=== PATIENT | female | born 1955 | race Caucasian/White ===

== ENCOUNTER → 2021-02-26 | Outpatient (CLI) | payer MEDICARE ==
[2021-02-26 22:56] LABS: Chol/HDL Ratio 3.44; LDL Cholesterol,Calculated 70.4 mg/dL (0.0-131.0); VLDL Calculation 29.6 mg/dL (5.00-40.00)
[2021-02-26 23:03] LABS: T4, Free (Free Thyroxine) 1.1 ng/dL (0.80-1.80)
== END | disposition home or self-care (01) ==
LOC: LABWHC1 10:21
PROVIDERS: ATTEND Family Medicine
DX: Z01.812 Encounter for preprocedural laboratory examination (principal); E03.9 Hypothyroidism, unspecified; E78.00 Pure hypercholesterolemia, unspecified; R73.03 Prediabetes
CPT/HCPCS: 36415; 80061; 83036; 84439; 84443; 84450; 84460

== ENCOUNTER → 2021-02-26 | Outpatient (CLI) | payer MEDICARE ==
--- NOTE | 2021-02-26 11:08 | XR ---
EXAMINATION TYPE: XR chest 2V DATE OF EXAM: 02/26/2021 COMPARISON: NONE TECHNIQUE: PA and lateral views submitted. HISTORY: Postop FINDINGS: The lungs are clear and there is no pneumothorax, pleural effusion, or focal pneumonia. Heart size normal. Atherosclerotic change aorta. No overt failure. Biapical pleural thickening. IMPRESSION: 1. No acute process.
[2021-02-26 11:45] LABS: Basophils % (A) 1 %; Eosinophils # (A) 0.2 k/uL (0-0.7); Eosinophils % (A) 6 %; HCT 43.5 % (34.0-46.0); HGB 14.8 gm/dL (11.4-16.0); Lymphocytes % (A) 25 %; MCH 33.2 pg (25.0-35.0); MCV 97.6 fL (80.0-100.0); Mean Platelet Volume 7.1; Monocytes # (A) 0.3 k/uL (0-1.0); Monocytes % (A) 8 %; Neutrophils # (A) 2.2 k/uL (1.3-7.7); Neutrophils % (A) 57 %; Platelet Count 200 k/uL (150-450); RBC 4.46 m/uL (3.80-5.40); RDW 13.6 % (11.5-15.5); WBC 3.8 k/uL (3.8-10.6)
[2021-02-26 11:47] LABS: Appearance,Urine Clear (Clear); Bacteria,Urine Occasional /hpf; Bilirubin,Urine Negative (Negative); Blood,Urine Negative (Negative); Color,Urine Yellow; Glucose,Urine (UA) Negative (Negative); Ketones,Urine Negative (Negative); Leukocyte Esterase,Urine Small (Negative); Mucus,Urine Rare /hpf; Nitrite,Urine Negative (Negative); PH, Urine 5.5 (5.0-8.0); Protein,Urine Negative (Negative); Specific Gravity,Urine 1.021 (1.001-1.035); Squamous Epithelial Cell,Urine 2 /hpf (0-4); Urobilinogen,Urine <2.0 mg/dL (<2.0); WBC,Urine 1 /hpf (0-5)
[2021-02-26 11:53] LABS: INR 0.9 (<1.2); Partial Thromboplastin Time 22.9 sec (22.0-30.0); Prothrombin Time 10.1 sec (9.0-12.0)
[2021-02-26 11:54] LABS: African American GFR (CKD) >90 (>60 ml/min/1.73 sqM); Anion Gap 8 mmol/L; Blood Urea Nitrogen 18 mg/dL (7-17); Calcium 9.9 mg/dL (8.4-10.2); Carbon Dioxide 29 mmol/L (22-30); Chloride 105 mmol/L (98-107); Glucose 128 mg/dL (74-99); Non-African American GFR(CKD) >90 (>60 ml/min/1.73 sqM); Sodium 142 mmol/L (137-145)
== END | disposition home or self-care (01) ==
LOC: LABPAT 10:16
PROVIDERS: ATTEND Orthopaedic Surgery Orthopaedic Surgery of the Spine
DX: Z01.812 Encounter for preprocedural laboratory examination (principal); M48.00 Spinal stenosis, site unspecified
CPT/HCPCS: 36415; 71046; 80048; 81001; 85025; 85610; 85730; 87070

== ENCOUNTER 2021-03-06 07:17 | Inpatient (IN) | payer MEDICARE ==
[2021-03-04 10:25] VITALS: BMI 36.8
[~2021-03-06 07:17] MED LIST: DEXAMETHASONE SOD PHOSPHATE 4 MG/ML 1 ML VIAL IV ONE; FAMOTIDINE 20 MG/2 ML VIAL IV PRN; ONDANSETRON 4 MG/2 ML VIAL IVP ONE; ceFAZolin 1,000 MG in SODIUM CHLORIDE 0.9% IRRIGATIO 1,000 ML IRRIGATION PRN
[2021-03-06] MEDS ORDERED: LIDOCAINE 1% (10MG/ML) FOR IV START INTRADERMA ONE (08:07)
[2021-03-06] MEDS: LACTATED RINGERS 1,000 ML IV SCH ×2 (08:09→16:11)
[2021-03-06 08:23] LABS: Glucose,Whole Blood 111 mg/dL (75-99)
[2021-03-06] MEDS ORDERED: ROCURONIUM 10 MG/ML (5 ML VIAL) IV ONE (08:25)
[2021-03-06] MEDS ORDERED: SUCCINYLCHOLINE CHLORIDE 100 MG/5 ML SYR IV ONE (08:25)
[2021-03-06] MEDS ORDERED: LIDOCAINE 1% INJ 10MG/ML (20 ML MDV) ONE (08:25)
[2021-03-06] MEDS ORDERED: fentaNYL (PF) 50 MCG/ML 2 ML AMP ONE (08:25)
[2021-03-06] MEDS ORDERED: MIDAZOLAM 2 MG/2 ML VIAL ONE (08:25)
[2021-03-06] MEDS ORDERED: PROPOFOL 10 MG/ML 20 ML VIAL IV ONE (08:25)
[2021-03-06] MEDS ORDERED: LIDOCAINE 1%-EPI 1:100,000 20 ML VIAL SQ ONE (09:14)
[2021-03-06] MEDS ORDERED: GELATIN SPONGE,ABSORB (LARGE) 1 EACH SPONGE MISCELLANE ONE (09:14)
[2021-03-06] MEDS ORDERED: THROMBIN (BOVINE) 5,000 UNIT VIAL TOPICAL ONE (09:14)
[2021-03-06] MEDS ORDERED: LACTATED RINGERS 1,000 ML IV ONE ×3 (09:58→12:25)
[2021-03-06] MEDS ORDERED: CYCLOBENZAPRINE 10 MG TAB PO PRN (11:34)
[2021-03-06] MEDS ORDERED: BENZOCAINE/MENTHOL LOZENG 1 EACH LOZENGE MUCOUS MEM PRN (11:34)
[2021-03-06] MEDS ORDERED: ALBUTEROL NEBULIZED 2.5 MG/3 ML INHALATION PRN (11:36)
--- NOTE | 2021-03-06 11:50 | P.OP ---
Date of Procedure: 03/06/21 Preoperative Diagnosis: Recurrent stenosis L4 5, degenerative scoliosis lumbar spine, degenerative disc disease, low back pain, lower extremity radiculopathy, lower extremity weakness, history of prior L4 5 Postoperative Diagnosis: Same Plus incidental durotomy which was a unexpected but known, patient of the surgical procedure Anesthesia: GETA Pathology: none sent Condition: stable Disposition: PACU Description of Procedure: DESCRIPTION OF PROCEDURE(S): BRIEF OPERATIVE NOTE Preoperative Diagnosis: Recurrent stenosis L4 5, degenerative scoliosis lumbar spine, degenerative disc disease, low back pain, lower extremity radiculopathy, lower extremity weakness, history of prior L4 5 Postoperative Diagnosis:Recurrent stenosis L4 5, degenerative scoliosis lumbar spine, degenerative disc disease, low back pain, lower extremity radiculopathy, lower extremity weakness, history of prior L4 5, plus incidental durotomy which wasn't known but unexpected competition of surgery and was repaired Procedure: Revision Laminectomy and decompression L4 5 Minimally invasive Posterior lateral decompression with discectomy and facet fusion L4 5 Minimally invasive Transforaminal lumbar interbody fusion for a 360 fusion L4 5 Discectomy for decompression L4 5 Placement of interbody graft L4 5 Local autogenous bone grafting Use of Cell Saver Use of bone graft extenders Closure incidental less than 1 mm durotomy with Tisseel Surgeon: Dr. Moncada Relocation Manager: Gurinder Collins is present throughout the entire the case persistence during positioning, dissection, exposure, visualization, and all crucial elements of the case as well as closure. Anesthesia: General anesthesia per Dr. Stroud Estimated blood loss: Approximately 250 mL Complications: Small less than 1 mm incidental durotomy at the right of L4 5 which was a unexpected but known convocation of surgery. This was able to be sealed well with Tisseel without any suture Components implanted: K2M minimally invasive [facility] pedicle screw system with 4 screws measuring 6.5 x 45 mm with 2 rods and 1 interbody [place] cage and Bio4 and DBX bone fibers to supplemental local autogenous bone graft Disposition: To recovery room in good stable condition. OPERATIVE INDICATIONS The patient has had long-standing issues in their lower back and lower extremities. One 20 years ago she had a laminectomy discectomy for a herniated disc at L4 5 which is giving her significant problems. She had done well with this however over the past couple of years she has been having worsening pain at her back and lower extremities. She's been having significant worsening right lower extremity radiculopathy over an L5 distribution and was found have degenerative disc disease with degenerative scoliosis and recurrent stenosis L4 5 and severe right foraminal stenosis which really well with her low back and lower extremity symptoms. The patient has been through conservative treatment. She is no longer have any lasting effect with interventional pain management . We discussed various treatment options including surgery, and the patient wishes to proceed with surgery We discussed the risk, patient's alternatives and benefits of surgery including but not limited to, risk of bleeding risk of infection, risk of need for further surgery, risk of decreased, loss of motion, muscle function, malunion nonunion, hardware failure, nerve damage, paralysis, heart attack, blindness and . OPERATIVE SUMMARY After discussing all the risks, patient alternatives and benefits at length, the patient elected to proceed with surgical intervention, signed informed consent, and presented for their procedure. The patient was seen and examined in the preoperative holding area and the surgical site was marked. The patient was given antibiotics and brought to the operating room. The patient was sedated and intubated by anesthesia in standard fashion. The patient was positioned on to the operating room table in a prone position on the appropriate frame which was well-padded and well molded. We were careful to pad any bony prominences and pressure points. We were careful to maintain the patient's cervical spine and good neutral alignment and position throughout. The patient was prepped and draped in a normal standard fashion. An appropriate timeout and keystone protocol performed. We were able to proceed with the surgery. The local wound area was infiltrated with local anesthetic. I was able utilize C-arm guidance to establish appropriate position over the pedicles bilaterally at the appropriate levels of L4 5. With the appropriate levels confirmed was able to make small stab incisions over the appropriate pedicle sites bilaterally. Utilizing C-arm in his house able to establish a Jamshidi needle over the lateral aspect of the pedicle and advanced the trocar into the pedicle being careful not to breech superiorly inferiorly medially or laterally. Position was confirmed regularly with AP and lateral images on C- arm. I was able to establish the trocar into the pedicle appropriately into the posterior aspect of the vertebral body bilaterally at the appropriate levels at L4 5 bilaterally. This was done at each of the pedicle positions and each of the vertebrae. I was able place the guidewire into the trocar and into the vertebral body appropriately under C-arm guidance. Dissection was taken down over the wire to the appropriate starting position for the screw placed. The appropriate length screw was chosen, threaded over the guidewire and screwed appropriately into the pedicle and vertebral body under C-arm guidance in excellent alignment and position with good bony purchase. This is done at each of the screw sites at the appropriate levels at L4 and 5 bilaterally. With the screws intact I extended the incision to connect the screw hole sites on the most symptomatic side on the right. I dissected down to establish access over the pars and lamina to the base of the spinous process. I was able to expose the facet joint. The capsule the facet was taken down and showed some facet arthrosis at the joint. I was able to use a combination of curettes and Kerrison rongeurs and a high-speed drill to take down the facet joint and do a facetectomy. Partial laminectomy was also performed. I was able get excellent foraminal decompression and central decompression with undermining across midline to perform a laminectomy centrally and contralaterally. I was able get good central decompression. The ligamentum flavum was taken down to further decompress centrally and at bilateral neural foramen. I was able to expose the disc space and visualize the traversing nerve root. At this point I noted some small CSF leakage. I explored the area but only saw a small pinhole size area where the leak was stemming at the posterior lateral aspect of the dura underneath the facet. There was some scar tissue around the area which had been taken down. I was able to pack the area with Gelfoam and control the leak and proceeded with the rest of the procedure well holding control over the leak. I was able to explore down over the disc space. Note was made of some disc protrusion at the level causing further compression of the nerve root. I was able to establish a annulotomy at the appropriate level protecting soft tissue and neural structures. Note was made of some disc desiccation at the disc. I performed a complete discectomy with accommodation of curettes and rasps and scrapers. I was able get good endplate preparation at the disc space. I sized for the appropriate size interbody spacer protecting the soft tissue and neural structures. The wound was copiously irrigated and suctioned dry. I was able to pack the disc space with local autogenous bone graft as well as a small amount of bone graft which was also placed into the interbody cage itself. Protecting the soft tissue structures and neural structures I was able place the interbody cage in good alignment and good position with good fit and fill at the interbody space. Position was confirmed with C-arm guidance. Good hemostasis maintained. I was able to remove the Gelfoam and there is no evidence of further leaking. We performed a Valsalva maneuver intraoperatively to explore if there was further leaking but was not any evidence of further CSF leak. I explored the area and did not see any obvious tear. There is no further collection of CSF fluid. I do not feel that we had to place any stitches in the area. I decided to place Tisseel over the space with a leak had occurred. Further Valsalva maneuver was performed and there is no evidence of any CSF collection or further leak. The wound was irrigated and suctioned dry. With the hardware intact, intraoperative C-arm imaging was again taken which showed good alignment and position of the hardware at the appropriate levels At L4 5. We were then able to measure, contour and place the rods and appropriate hardware bilaterally. I was able to place capcrews, tighten them down, and torque them with the torque screwdriver appropriately. With this intact I was able to place the local autogenous bone graft with additional bone graft enh ancer as necessary into the posterior lateral gutters over the decorticated transverse processes. The remainder of the bone graft was placed over the facet joint on the contralateral side after taking down the facet joint capsule. With the bone graft intact, a stable construct, and good decompression at the appropriate levels, we were able to proceed with closure. Good hemostasis was maintained. There is no evidence of dural tear or leak. The fascia was closed for a watertight closure. he subcuticular tissue was closed with absorbable suture. The wound was cleaned and dried and dressed with the appropriate dressing. The drapes were broken down. The patient was gently rolled back onto their hospital bed being careful to maintain their cervical spine and good neutral alignment and position. They were woken up by anesthesia, extubated, and brought to the recovery room in good stable condition. The patient will be admitted to the hospital for appropriate postoperative care, medical management and monitoring. We will continue to follow them closely about the postoperative course.
[2021-03-06] MEDS: HYDROmorphone 0.5 MG/0.5 ML SYRINGE IVP PRN ×3 (12:18→19:52)
[2021-03-06 12:39] LABS: Glucose,Whole Blood 121 mg/dL (75-99)
--- NOTE | 2021-03-06 12:50 | FL ---
Fluoroscopy and limited lumbar spine HISTORY: Pain 18 seconds fluoroscopy time supplied to the referring clinician. 2 intraoperative C-arm images docum ent the procedure. See dictated report from anesthesia.
[2021-03-06] MEDS: HYDROmorphone 1 MG/ML 1 ML SYRINGE IVP PRN (14:21)
[2021-03-06] MEDS: ATORVASTATIN 10 MG TAB PO SCH (14:22)
[2021-03-06] MEDS: SODIUM CHLORIDE 0.9% 1,000 ML IV SCH (14:23)
[2021-03-06] MEDS: HYDROcodone/APAP 10-325MG 1 EACH TAB PO PRN ×2 (16:09→23:55)
[2021-03-06] MEDS: CYCLOBENZAPRINE 10 MG TAB PO SCH ×2 (16:09→21:03)
[2021-03-06] MEDS: PRAMIPEXOLE 0.5 MG TAB PO SCH (21:02)
[2021-03-07] MEDS: SODIUM CHLORIDE 0.9% 1,000 ML IV SCH ×2 (01:00→13:39)
[2021-03-07] MEDS: SUMAtriptan succinate 50 MG TAB PO PRN ×2 (01:03→15:08)
[2021-03-07] MEDS: HYDROmorphone 1 MG/ML 1 ML SYRINGE IVP PRN ×4 (02:58→19:44)
[2021-03-07] MEDS: LEVOTHYROXINE 137 MCG TAB PO SCH (05:49)
[2021-03-07] MEDS: HYDROcodone/APAP 10-325MG 1 EACH TAB PO PRN ×4 (05:49→23:12)
[2021-03-07 06:58] LABS: Basophils % (A) 1 %; Eosinophils # (A) 0.2 k/uL (0-0.7); Eosinophils % (A) 4 %; HCT 42.2 % (34.0-46.0); HGB 14.5 gm/dL (11.4-16.0); Lymphocytes # (A) 0.8 k/uL (1.0-4.8); Lymphocytes % (A) 16 %; MCH 33.7 pg (25.0-35.0); MCHC 34.4 g/dL (31.0-37.0); MCV 97.9 fL (80.0-100.0); Mean Platelet Volume 7.2; Monocytes # (A) 0.4 k/uL (0-1.0); Monocytes % (A) 7 %; Neutrophils # (A) 3.7 k/uL (1.3-7.7); Neutrophils % (A) 71 %; Platelet Count 221 k/uL (150-450); RBC 4.31 m/uL (3.80-5.40); RDW 13.4 % (11.5-15.5); WBC 5.2 k/uL (3.8-10.6)
[2021-03-07] MEDS ORDERED: PANTOPRAZOLE 40 MG TABLET PO SCH (07:30)
[2021-03-07] MEDS: CYCLOBENZAPRINE 10 MG TAB PO SCH ×3 (08:00→21:03)
[2021-03-07] MEDS: LORATADINE 10 MG TAB PO SCH (08:00)
[2021-03-07] MEDS: metFORMIN 500 MG TAB PO SCH (08:00)
[2021-03-07] MEDS: METOPROLOL SUCCINATE (ER) 25 MG TAB.ER.24H PO SCH (08:00)
[2021-03-07] MEDS: TRIAMTERENE-HCTZ 37.5-25MG 1 EACH CAP PO SCH (08:00)
[2021-03-07] MEDS: SENNOSIDES-DOCUSATE SODIUM 1 EACH TAB PO SCH (08:00)
[2021-03-07] MEDS: MULTIVITAMINS, THERA 1 EACH TAB PO SCH (08:00)
[2021-03-07] MEDS: CHOLECALCIFEROL 25 MCG (1000 IU) TABLET PO SCH (08:00)
--- NOTE | 2021-03-07 08:54 | P.PN ---
Progress Note - Text Progress Note Date: 03/07/21 Postoperative day #1 Patient is seen and examined today at bedside. The patient has some pain around the surgical site as expected. Pain is being controlled with medication. She remains on the bed rest flat in bed. She said she had a very slight migraine which is not uncommon for her but this resolved well with medication. She feels her legs are doing well but has pain with moving of her right leg but is able to do so with adequate strength. She denies any nausea or vomiting. Physical Exam Afebrile with stable vital signs Abdomen is soft nontender. Chest has good excursion deep and space expiration She remains flat in bed. Her Mayen is intact. Extremities have not had neurologic change from prior to surgery. Calves and thighs were soft nontender without evidence of DVT. Assessment/Plan Postoperative day #1 status post minimally invasive revision decompression and fusion L4 5 for her degenerative scoliosis with spinal stenosis Incidental durotomy at the time of surgery less than 1 mm which appears to be healing appropriately Patient is progressing as expected from the surgery. We will continue to have her on bedrest today. She did have very slight migraine but it is difficult to determine if this was a sort of spinal headache as she has history of migraines and resolved well. I would like her to stay in bed flat in bed for another 24 hours. Tomorrow at lunchtime we will start to have her sit up and if she is not having any headaches then she can increase her activity to her tolerance at that point. She will remain on bed rest flat in bed today. Due to her bedrest we will keep her Mayen intact and if her prophylactic antibiotics We will continue pain control with oral or IV medications. We'll continue to follow patient closely.
[2021-03-07] MEDS: ONDANSETRON 4 MG/2 ML VIAL IVP PRN ×2 (13:37→23:08)
[2021-03-07 13:42] LABS: African American GFR (CKD) 111.6 (60.0-200.0); Calcium 8.5 mg/dL (8.7-10.3); Non-African American GFR(CKD) 96.3 (60.0-200.0); Potassium 3.6 mmol/L (3.5-5.5)
[2021-03-07] MEDS: LACTATED RINGERS 1,000 ML IV SCH (17:01)
[2021-03-07] MEDS: PRAMIPEXOLE 0.5 MG TAB PO SCH (21:04)
[2021-03-08] MEDS: PANTOPRAZOLE 40 MG/10 ML VIAL IVP SCH ×3 (00:58→21:23)
[2021-03-08 01:34] LABS: Basophils # (A) 0.1 k/uL (0-0.2); Basophils % (A) 1 %; Eosinophils # (A) 0.2 k/uL (0-0.7); Eosinophils % (A) 3 %; HCT 42.3 % (34.0-46.0); HGB 14.3 gm/dL (11.4-16.0); Lymphocytes # (A) 0.9 k/uL (1.0-4.8); Lymphocytes % (A) 12 %; MCH 33.1 pg (25.0-35.0); MCHC 33.9 g/dL (31.0-37.0); MCV 97.5 fL (80.0-100.0); Mean Platelet Volume 6.8; Monocytes # (A) 0.5 k/uL (0-1.0); Monocytes % (A) 6 %; Neutrophils # (A) 5.9 k/uL (1.3-7.7); Neutrophils % (A) 77 %; Platelet Count 200 k/uL (150-450); RBC 4.34 m/uL (3.80-5.40); RDW 13.5 % (11.5-15.5); WBC 7.7 k/uL (3.8-10.6)
[2021-03-08 02:24] LABS: Glucose,Whole Blood 143 mg/dL (75-99)
[2021-03-08] MEDS: HYDROmorphone 1 MG/ML 1 ML SYRINGE IVP PRN ×5 (02:45→19:55)
[2021-03-08] MEDS: SODIUM CHLORIDE 0.9% 1,000 ML IV SCH ×2 (05:23→17:01)
[2021-03-08 07:28] LABS: Basophils % (A) 0 %; Eosinophils # (A) 0.1 k/uL (0-0.7); Eosinophils % (A) 2 %; HCT 41.9 % (34.0-46.0); HGB 14.2 gm/dL (11.4-16.0); Lymphocytes # (A) 0.8 k/uL (1.0-4.8); Lymphocytes % (A) 11 %; MCH 33.2 pg (25.0-35.0); MCHC 33.9 g/dL (31.0-37.0); MCV 98.1 fL (80.0-100.0); Mean Platelet Volume 7.2; Monocytes # (A) 0.5 k/uL (0-1.0); Monocytes % (A) 7 %; Neutrophils # (A) 5.7 k/uL (1.3-7.7); Neutrophils % (A) 79 %; Platelet Count 204 k/uL (150-450); RBC 4.27 m/uL (3.80-5.40); RDW 13.4 % (11.5-15.5); WBC 7.2 k/uL (3.8-10.6)
[2021-03-08] MEDS: metFORMIN 500 MG TAB PO SCH (07:34)
[2021-03-08] MEDS: METOPROLOL SUCCINATE (ER) 25 MG TAB.ER.24H PO SCH (07:34)
[2021-03-08] MEDS: CYCLOBENZAPRINE 10 MG TAB PO SCH ×3 (07:34→21:26)
[2021-03-08] MEDS: SENNOSIDES-DOCUSATE SODIUM 1 EACH TAB PO SCH (07:34)
[2021-03-08] MEDS: LORATADINE 10 MG TAB PO SCH (07:35)
[2021-03-08] MEDS: LEVOTHYROXINE 137 MCG TAB PO SCH (07:35)
[2021-03-08] MEDS: TRIAMTERENE-HCTZ 37.5-25MG 1 EACH CAP PO SCH (07:35)
[2021-03-08] MEDS: MULTIVITAMINS, THERA 1 EACH TAB PO SCH (07:35)
[2021-03-08] MEDS: CHOLECALCIFEROL 25 MCG (1000 IU) TABLET PO SCH (07:35)
[2021-03-08] MEDS: SUMAtriptan succinate 50 MG TAB PO PRN (09:12)
--- NOTE | 2021-03-08 12:06 | P.CONS ---
History of Present Illness - Reason for Consult Consult date: 03/08/21 Coffee-ground emesis Requesting physician: Yonny Polk - Chief Complaint Elective laminectomy and fusion - History of Present Illness This is a pleasant 65-year-old white female who presented to the hospital an elective laminectomy, decompression and fusion with Dr. Moncada 2 days ago. The patient had 5 or 6 episodes of vomiting yesterday that were coffee ground, and positive gastric occult blood. She has a past medical history of degenerative disc disease, hypertension, GERD, and hypothyroidism. Denies any previous history of peptic ulcer disease or GI bleed, but does have a history of acid reflux and is currently on Protonix. She states she had a recent EGD and c olonoscopy by Dr. Martinez which she states was done at [facility] and states the report said 2 months ago Liz however patient does not recall when it was. She is not on any anticoagulation other than a low dose baby aspirin, usually takes hydrocodone for her pain, naproxen on rare occasions. Denies any black stools or bloody stools, she is reporting epigastric pain. Admission hemoglobin was 14.5, today's hemoglobin remained stable at 14.2. Review of Systems REVIEW OF SYSTEMS: CARDIOPULMONARY: No chest pain or shortness of breath. Gastrointestinal: Epigastric pain. Heartburn.. No nausea or vomiting. No hematemesis. Positive coffee-ground emesis 5. No rectal bleeding, or melena. GENITOURINARY: No dysuria or hematuria. MUSCULOSKELETAL: Neck and back pain, recent laminectomy, decompression and fusion. SKIN: No rashes. No jaundice. ENDOCRINE: No chills, fevers. No excessive weight gain or loss. No polydipsia or polyuria. PSYCHIATRIC: Unremarkable. NEUROLOGY: No change in mental status. Denies dizziness, headache. ENT: Vision unremarkable. CONSTITUTIONAL: No recent weight loss. No fever, chills, night sweats. Past Medical History Past Medical History: Chest Pain / Angina, Diabetes Mellitus, GERD/Reflux, Hypertension, Myocardial Infarction ([place]), Musculoskeletal Disorder, Osteoarthritis (OA), Sleep Apnea/CPAP/BIPAP, Thyroid Disorder Additional Past Medical History / Comment(s): NO ABD PAIN. MIGRAINES. RESTLESS LEG. USES CPAP. Last Myocardial Infarction Date:: 2004 History of Any Multi-Drug Resistant Organisms: None Reported Past Surgical History: Back Surgery, Cholecystectomy, Hysterectomy, Tonsillectomy Past Anesthesia/Blood Transfusion Reactions: No Reported Reaction Additional Past Anesthesia/Blood Transfusion Reaction / Comm: "epidural shots experienced extreme headaches after procedure" Smoking Status: Never smoker - Past Family History Father Family Medical History: Deep Vein Thrombosis (DVT) Additional Family Medical History / Comment(s): ANEURYSM IN BACK OF KNEES. Medications and Allergies Home Medications Medication Instructions Recorded Confirmed Type Levothyroxine Sodium [Synthroid] 137 mcg PO QAM 02/23/14 03/06/21 History Pantoprazole Sodium [Protonix] 40 mg PO QAM 02/23/14 03/06/21 History Pramipexole Di-HCl [Mirapex] 0.5 mg PO HS 02/23/14 03/06/21 History Triamterene-Hctz 37.5-25Mg 1 cap PO QAM 02/23/14 03/06/21 History [Dyazide 37.5-25 Capsule] Cholecalciferol [Vitamin D3] 3,000 unit PO DAILY 12/10/15 03/06/21 History Hydrocodone/Acetaminophen 1 tab PO Q6HR PRN 01/23/16 03/06/21 History [Hydrocodone/Acetaminophen 10-325] Metoprolol Succinate (ER) [Toprol 25 mg PO QAM 01/23/16 03/06/21 History Xl] Albuterol Sulfate [Proair 1 puff PO Q6H PRN 02/14/21 03/06/21 History Respiclick] Multivitamin [Multivitamins Adult 1 each PO DAILY 02/14/21 03/06/21 History Gummies] Rizatriptan Odt [Maxalt Corn Sheller] 10 mg PO DAILY PRN 02/14/21 03/06/21 History Rosuvastatin Calcium [Crestor] 5 mg PO MOWEFR 02/14/21 03/06/21 History Cetirizine HCl [Zyrtec] 10 mg PO DAILY 03/04/21 03/06/21 History Cyclobenzaprine [Flexeril] 10 mg PO TID 03/04/21 03/06/21 History metFORMIN HCL [Glucophage] 500 mg PO DAILY 03/04/21 03/06/21 History Cyclobenzaprine [Flexeril] 10 mg PO TID PRN #60 tab 03/08/21 Rx HYDROcodone/APAP 5-325MG [Dewar 5] 1 - 2 each PO Q6HR PRN #56 tab 03/08/21 Rx Allergies Allergy/AdvReac Type Severity Reaction Status Date / Time Penicillins Allergy Rash/Hives Verified 03/06/21 07:47 Sulfa (Sulfonamide Allergy Unknown Verified 03/06/21 07:47 Antibiotics) Physical Exam Vitals: Vital Signs Temp Pulse Pulse Resp BP Pulse Ox 03/08/21 03:46 98 F 94 20 127/74 95 03/08/21 01:20 97 21 03/08/21 01:10 96 20 96 03/08/21 00:47 99.1 F 93 16 151/81 97 03/07/21 23:10 94 22 140/67 96 03/07/21 20:12 97.9 F 94 18 154/79 97 03/07/21 15:37 96 Intake and Output 03/07/21 03/08/21 03/08/21 22:59 06:59 14:59 Intake Total 700 Output Total 1550 700 Balance -850 -700 Intake: Intake, IV Titration 700 Amount Sodium Chloride 0.9% 1, 600 000 ml @ 75 mls/hr IV . [id number] [facility] Rx#:[id number] ceFAZolin 2 gm In Sodium 100 Chloride 0.9% 50 ml @ 100 mls/hr IVPB Q8HR [facility] Rx# :[id number] Output: Urine 1550 700 Other: Voiding Method Indwelling Catheter General appearance: The patient is alert, oriented, appears in no acute distress. HET: Head is normocephalic and atraumatic. Conjunctiva pink .Sclera anicteric. Neck: Supple without lymphadenopathy. Trachea midline. Heart: S1 S2. Regular rate and rhythm. Lungs: Clear to auscultation. Abdomen: Soft, epigastric tenderness, nondistended with bowel sounds. No guarding or rigidity. Skin: No rashes. No jaundice. Extremities: Normal skin color and turgor. No pedal edema. Neurological: No focal deficits. Alert and oriented 3. Results CBC & Chem 7: 03/08/21 06:57 03/07/21 06:24 Labs: Abnormal Lab Results - Last 24 Hours (Table) 03/07/21 03/08/21 03/08/21 Range/Units 06:24 01:24 02:22 Lymphocytes # 0.9 L (1.0-4.8) k/uL Glucose 139 H (70-110) mg/dL POC Glucose (mg/dL) 143 H (75-99) mg/dL Calcium 8.5 L (8.7-10.3) mg/dL 03/08/21 Range/Units 06:57 Lymphocytes # 0.8 L (1.0-4.8) k/uL Glucose (70-110) mg/dL POC Glucose (mg/dL) (75-99) mg/dL Calcium (8.7-10.3) mg/dL Assessment and Plan (1) Coffee ground emesis Narrative/Plan: 25-year-old female who presented to the hospital for elective outpatient laminectomy, decompression and fusion 2 days ago with complaints of 5-6 episodes of coffee-ground emesis yesterday evening. She denies any further emesis today. No previous history of GI bleed or peptic ulcer disease. Does have a history of acid reflux on Protonix. States she had a prior EGD and colonoscopy with Dr. Murillo at [facility], states she was told the report said 2 months ago however she does not recall. Admission hemoglobin at 14.5, today's repeat hemoglobin 14.2. She denies any black stools, hematemesis, or rectal bleeding. She does state she has some epigastric tenderness. Possible etiologies include gastritis, esophagitis, AVM, peptic ulcer disease or other etiology. We'll proceed with upper endoscopy tomorrow. Current Visit: Yes Status: Acute Code(s): K92.0 - HEMATEMESIS SNOMED Code(s): 92181891 Plan: 1. Nothing by mouth after midnight 2. Repeat CBC in the a.m. 3. Protonix 40 mg twice a day 4. Avoid NSAIDs 5. Will proceed with EGD tomorrow morning if cleared by orthopedics, procedure discussed with patient in detail along with risks and benefits. The patient is willing to proceed. Thank you for this consultation, we will continue to follow. Dr. Jeanette Martinez I agree with the dictator's note, documented as a scribe by Martita Waters.
[2021-03-08] MEDS: ONDANSETRON 4 MG/2 ML VIAL IVP PRN (12:18)
[2021-03-08 12:38] LABS: Glucose,Whole Blood 136 mg/dL (75-99)
--- NOTE | 2021-03-08 12:59 | P.PN ---
Progress Note - Text Progress Note Date: 03/08/21 Orthopedic Spine: History of present illness: Patient is a pleasant 65-year-old female who is seen and examined at the bedside following posterior lateral decompression and fusion performed Thursday. She has remain lying flat in bed since surgical intervention due to incidental durotomy of less than 1 mm. She had a headache morning which improves throughout the day. She does have a history of migraine headaches. She states she had a mild headache this morning but not significant just over her left eyebrow. She is looking forward to trying to sit up today to see if she experiences any spinal headaches. Overnight she did have an episode of hematemesis. Medicine was contacted as was gastroenterology. She has been seen by gastroenterology would like to perform an EGD tomorrow morning if the patient is cleared from an orthopedic standpoint. She is not having any anemia. Her hemoglobin is 14.2. Currently does not complain of nausea, vomiting, fever, or chills. Patient states pain has been adequately controlled. She does feel some difficulty with lifting her right lower extremity while in bed. But is unsure how her mobility will be as she has remained in bed. Patient is eating and voiding freely without difficulty. Her Mayen catheter has remained intact. Physical Exam Lumbar Fusion: Status post surgical day number 2 Patient is awake, alert, and oriented 3 Vital signs stable Good chest excursion with deep inspiration and expiration Abdomen soft nontender Dorsiflexion, plantarflexion, and extensor hallucis longus positive sustained bilaterally No signs or symptoms of DVT; no calf pain; pneumatic cuffs intact bilateral lower extremities Optifoam dressings remain intact over the lumbar spine and right iliac crest Neurovascularly intact bilaterally lower extremities Mayen catheter intact Assessment: L4-5 status post minimally invasive posterior lateral decompression and fusion with transforaminal lumbar interbody fusion and revision laminectomy Incidental durotomy of less than 1 mm during surgical intervention History of migraine headaches Hematemesis over the night Low back pain Diabetes mellitus Hypertension History of myocardial infarction Thyroid disorder Sleep apnea Plan: 1. Patient was able to sit up at lunchtime today, 03/08/2021. She is not currently experiencing any spinal headaches. She has already been able to transfer to a bedside chair. We discussed if she does not experience any spinal headaches, she may continue to increase her mobility and ambulation. We will encourage her to work with physical therapy to help with increasing her mobility and ambulation. If she does begin to experience spinal headaches, we'll plan to have her return lying flat in bed and will keep her lying flat in bed until lunchtime tomorrow, 12/07/2020. 2. She is not currently experiencing any spinal headaches and if the patient continues to not experience any spinal headaches, she may proceed forward with EGD testing as planned by gastroenterology which is currently scheduled for tomorrow, 03/09/2021 3. Continue pain control with IV and oral medications 4. We will discontinue the patient's Mayen catheter when she is able to increa se her mobility and ambulation 5. Dressings to remain intact with Optifoam; patient may shower with dressings intact 6. Patient will continue be seen and examined by medicine and gastroenterology for treatment and evaluation of her other medical diagnoses including hematemesis, diabetes mellitus, hypertension, thyroid disorder, sleep apnea, and history of myocardial infarction. 7. We will continue to follow the patient closely; depending on the patient's progress, we may plan for discharge home as early as tomorrow, 8. Patient can follow-up with Gurinder Castañeda PA-C or Dr. Mike Moncada at [facility] in 2-3 weeks following discharge
--- NOTE | 2021-03-08 15:24 | P.CONS ---
History of Present Illness - Reason for Consult Consult date: 03/08/21 Medical management Requesting physician: Franchesca Moncada - Chief Complaint Lumbar surgery - History of Present Illness Consultation: This is a very pleasant 65-year-old patient who follows with Dr. Dr. Archibald. Chronic stable medical conditions include diabetes, GERD, hypertension, prior [place], obstructive sleep apnea, hypothyroid, restless leg syndrome. Patient's had chronic lower back pain not responding to conservative treatment. Was having all. Radiculopathy in both the legs. Symptoms have not responding to conservative treatment. Patient recurrent stenosis L4-L5 DJD, but extremity weakness. Patient underwent decompression discectomy. On March 06. Yesterday patient had a spinal leak. Was put on bedrest. Was having headaches. Below the night patient started having coffee-ground emesis. Some abdominal discomfort. No prior history of ulcers. GI was also was consulted. This afternoon patient sitting up on a chair. Did eat some. at the bedside. Slight abdominal discomfort. As far some flatus. Does feel dizzy and a bit tired. Review of systems: GEN.: Tired EYES: None HEENT: None NECK: None RESPIRATORY: None CARDIOVASCULAR: None GASTROINTESTINAL: As above GENITOURINARY: None MUSCULOSKELETAL: Joint pains LYMPHATICS: None HEMATOLOGICAL: None PSYCHIATRY: None NEUROLOGICAL: Radiculopathy Past medical history to include: Diabetes, GERD, hypertension, previous [place], prostatitis, obstructive sleep apnea, hypothyroid, restless leg syndrome, migraines Social history: Does not smoke or drink alcohol. . Physical examination: VITAL SIGNS: 98.3, 91, 18, 147/80, 96% room air GENERAL:. BMI 36.9, sitting up in a chair, awake. EYES: Pupils equal. Conjunctiva normal. HEENT: External appearance of nose and ears normal, oral cavity grossly normal. NECK: JVD not raised; masses not palpable. HEART: First and second heart sounds are normal; no edema. LUNGS: Respiratory rate normal; clear to auscultation. ABDOMEN: Soft, nontender, liver spleen not palpable, no masses palpable. PSYCH: Alert and oriented x3; mood and affect normal. MUSCULAR skeletal: Dressing over the operative site. NEUROLOGICAL: Cranial nerves grossly intact; no facial asymmetry, power and sensation grossly intact. LYMPHATICS: No lymph nodes palpable in the axilla and neck INVESTIGATIONS, reviewed in the clinical context: WBC 7.2 hemoglobin point 0.2 platelets 204 Potassium 3.6 creatinine 0.6 Assessment and plan: -Coffee-ground emesis, with no prior history of GI symptoms Consultation to GI with a view to EGD. Add PPI. -Diabetes mellitus type 2 Metformin. Follow Accu-Cheks -Hyperlipidemia Continue with Crestor -Restless leg syndrome Continue with Mirapex -Hypothyroid Continue with Synthroid -Obesity BMI 36.9 Weight loss measures and follow-up with PCP -Recurrent stenosis L4-L5, DJD, lower extremity neuropathy and weakness, followed by decompression and discectomy fusion Patient remained nothing by mouth after midnight with a view to EGD. Other medications to continue. Follow Accu-Cheks. Care was discussed with the patient has been out of the bedside. PTOT. Thank you Dr. Moncada Past Medical History Past Medical History: Chest Pain / Angina, Diabetes Mellitus, GERD/Reflux, Hypertension, Myocardial Infarction ([place]), Musculoskeletal Disorder, Osteoarthritis (OA), Sleep Apnea/CPAP/BIPAP, Thyroid Disorder Additional Past Medical History / Comment(s): NO ABD PAIN. MIGRAINES. RESTLESS LEG. USES CPAP. Last Myocardial Infarction Date:: 2004 History of Any Multi-Drug Resistant Organisms: None Reported Past Surgical History: Back Surgery, Cholecystectomy, Hysterectomy, To nsillectomy Past Anesthesia/Blood Transfusion Reactions: No Reported Reaction Additional Past Anesthesia/Blood Transfusion Reaction / Comm: "epidural shots experienced extreme headaches after procedure" Smoking Status: Never smoker - Past Family History Father Family Medical History: Deep Vein Thrombosis (DVT) Additional Family Medical History / Comment(s): ANEURYSM IN BACK OF KNEES. Medications and Allergies Home Medications Medication Instructions Recorded Confirmed Type Levothyroxine Sodium [Synthroid] 137 mcg PO QAM 02/23/14 03/06/21 History Pantoprazole Sodium [Protonix] 40 mg PO QAM 02/23/14 03/06/21 History Pramipexole Di-HCl [Mirapex] 0.5 mg PO HS 02/23/14 03/06/21 History Triamterene-Hctz 37.5-25Mg 1 cap PO QAM 02/23/14 03/06/21 History [Dyazide 37.5-25 Capsule] Cholecalciferol [Vitamin D3] 3,000 unit PO DAILY 12/10/15 03/06/21 History Hydrocodone/Acetaminophen 1 tab PO Q6HR PRN 01/23/16 03/06/21 History [Hydrocodone/Acetaminophen 10-325] Metoprolol Succinate (ER) [Toprol 25 mg PO QAM 01/23/16 03/06/21 History Xl] Albuterol Sulfate [Proair 1 puff PO Q6H PRN 02/14/21 03/06/21 History Respiclick] Multivitamin [Multivitamins Adult 1 each PO DAILY 02/14/21 03/06/21 History Gummies] Rizatriptan Odt [Maxalt Acidizer Helper] 10 mg PO DAILY PRN 02/14/21 03/06/21 History Rosuvastatin Calcium [Crestor] 5 mg PO MOWEFR 02/14/21 03/06/21 History Cetirizine HCl [Zyrtec] 10 mg PO DAILY 03/04/21 03/06/21 History Cyclobenzaprine [Flexeril] 10 mg PO TID 03/04/21 03/06/21 History metFORMIN HCL [Glucophage] 500 mg PO DAILY 03/04/21 03/06/21 History Cyclobenzaprine [Flexeril] 10 mg PO TID PRN #60 tab 03/08/21 Rx HYDROcodone/APAP 5-325MG [Reva 5] 1 - 2 each PO Q6HR PRN #56 tab 03/08/21 Rx Allergies Allergy/AdvReac Type Severity Reaction Status Date / Time Penicillins Allergy Rash/Hives Verified 03/06/21 07:47 Sulfa (Sulfonamide Allergy Unknown Verified 03/06/21 07:47 Antibiotics) Physical Exam Vitals: Vital Signs Temp Pulse Pulse Pulse Resp BP Pulse Ox 03/08/21 13:00 98.3 F 91 18 147/80 96 03/08/21 03:46 98 F 94 20 127/74 95 03/08/21 01:20 97 21 03/08/21 01:10 96 20 96 03/08/21 00:47 99.1 F 93 16 151/81 97 03/07/21 23:10 94 22 140/67 96 03/07/21 20:12 97.9 F 94 18 154/79 97 03/07/21 15:37 96 Intake and Output 03/08/21 03/08/21 03/08/21 06:59 14:59 22:59 Output Total 700 700 Balance -700 -700 Output: Urine 700 700 Other: Voiding Method Indwelling Catheter Results CBC & Chem 7: 03/08/21 06:57 03/07/21 06:24 Labs: Abnormal Lab Results - Last 24 Hours (Table) 03/08/21 03/08/21 03/08/21 Range/Units 01:24 02:22 06:57 Lymphocytes # 0.9 L 0.8 L (1.0-4.8) k/uL POC Glucose (mg/dL) 143 H (75-99) mg/dL 03/08/21 Range/Units 12:35 Lymphocytes # (1.0-4.8) k/uL POC Glucose (mg/dL) 136 H (75-99) mg/dL
[2021-03-08] MEDS: HYDROcodone/APAP 10-325MG 1 EACH TAB PO PRN (16:37)
[2021-03-08] MEDS: ATORVASTATIN 10 MG TAB PO SCH (16:37)
[2021-03-08] MEDS: LACTATED RINGERS 1,000 ML IV SCH (17:32)
[2021-03-08] MEDS: PRAMIPEXOLE 0.5 MG TAB PO SCH (21:23)
[2021-03-09] MEDS: SODIUM CHLORIDE 0.9% 1,000 ML IV SCH ×2 (00:02→22:46)
[2021-03-09] MEDS: HYDROcodone/APAP 10-325MG 1 EACH TAB PO PRN ×3 (00:03→20:23)
[2021-03-09] MEDS: LEVOTHYROXINE 137 MCG TAB PO SCH (06:12)
[2021-03-09] MEDS ORDERED: LIDOCAINE 1% INJ 10MG/ML (20 ML MDV) ONE (07:01)
[2021-03-09] MEDS ORDERED: PROPOFOL 10 MG/ML 20 ML VIAL IV ONE (07:01)
[2021-03-09] MEDS ORDERED: SODIUM CHLORIDE 0.9% 500 ML 500 ML IV ONE (07:05)
--- NOTE | 2021-03-09 07:15 | P.PCN ---
Date of Procedure: 03/09/21 Procedure(s) Performed: BRIEF HISTORY: Patient is a 65-year-old, pleasant, white female scheduled for an upper endoscopy. Evaluation of nausea vomiting and coffee-ground emesis for the last 1 day duration.. PROCEDURE PERFORMED: Esophagogastroduodenoscopy with biopsy. PREOPERATIVE DIAGNOSIS: Acute upper GI bleed. IV sedation per anesthesia. PROCEDURE: After informed consent was obtained, the patient was brought into the endoscopy unit. IV sedation was administered by Anesthesia under continuous monitoring. Initially the Olympus GIF-140 video endoscope was inserted into the mouth. Esophagus intubated without any difficulty. It was gradually advanced into the stomach and duodenum and carefully examined. The bulb and the second part of the duodenum appeared normal. The scope at this time was withdrawn to the stomach, adequately insufflated with air, and upon careful examination, mucosa of the antrum, had scattered erosions noted and biopsies were done from this area. In the proximal body the stomach there was a 5 mm superficial ulcers with no active bleeding. The rest of the body, cardia and the fundus appeared normal. The scope was then withdrawn into the esophagus. The GE junction was located at 39 cm from the incisors. The esophagus appeared normal. There were no erosions or ulcerations seen and the patient tolerated the procedure well. IMPRESSION: 1. Antral erosive gastritis. 2. 5 mm superficial ulcer in the proximal body the stomach with no active bleeding. RECOMMENDATIONS: The findings of this examination were discussed with the patient. Diet will be advanced as tolerated. Continue Protonix 40 mg daily and avoid NSAIDs..
[2021-03-09] MEDS: LORATADINE 10 MG TAB PO SCH (08:43)
[2021-03-09] MEDS: PANTOPRAZOLE 40 MG/10 ML VIAL IVP SCH ×2 (08:43→20:24)
[2021-03-09] MEDS: CYCLOBENZAPRINE 10 MG TAB PO SCH ×3 (08:43→22:44)
[2021-03-09] MEDS: METOPROLOL SUCCINATE (ER) 25 MG TAB.ER.24H PO SCH (08:43)
[2021-03-09] MEDS: MULTIVITAMINS, THERA 1 EACH TAB PO SCH (08:43)
[2021-03-09] MEDS: CHOLECALCIFEROL 25 MCG (1000 IU) TABLET PO SCH (08:44)
[2021-03-09] MEDS: TRIAMTERENE-HCTZ 37.5-25MG 1 EACH CAP PO SCH (08:44)
[2021-03-09] MEDS: SENNOSIDES-DOCUSATE SODIUM 1 EACH TAB PO SCH (08:44)
[2021-03-09] MEDS: MAGNESIUM HYDROXIDE 2,400 MG/10 ML CUP PO PRN (09:21)
--- NOTE | 2021-03-09 12:56 | P.PN ---
Subjective Progress Note Date: 03/09/21 Principal diagnosis: Status post lumbar fusion. Patient is a pleasant 65-year-old female who is seen and examined at the bedside following posterior lateral decompression and fusion performed Thursday. She had an EGD this morning with Dr. Martinez. Currently does not complain of nausea, vomiting, fever, or chills. Patient states pain has been adequately controlled. She does feel some difficulty with lifting her right lower extremity while in bed. Patient is eating and voiding freely without difficulty. She has not yet had a bowel movement. Objective - Vital Signs Vital signs: Vital Signs Temp 98.7 F 03/09/21 11:30 Pulse 91 03/09/21 11:30 Resp 18 03/09/21 11:30 BP 131/73 03/09/21 11:30 Pulse Ox 94 L 03/09/21 11:30 Intake & Output 03/08/21 03/09/21 03/09/21 18:59 06:59 18:59 Intake Total 1350 500 100 Output Total 2900 600 443 Balance -1550 -100 -343 Intake: IV 100 Intake, IV Titration 200 500 Amount Sodium Chloride 0.9% 1, 450 000 ml @ 75 mls/hr IV . [id number] ARACELI Rx#:[id number] ceFAZolin 2 gm In Sodium 200 50 Chloride 0.9% 50 ml @ 100 mls/hr IVPB Q8HR [facility]ACELI Rx# :[id number] Oral 1150 Output: Urine 2900 600 Uretheral (Mayen) 1100 600 Post Void Residual 443 Other: Voiding Method Indwelling Catheter - Exam Status post surgical day number 3 Patient is awake, alert, and oriented 3 Vital signs stable Good chest excursion with deep inspiration and expiration Abdomen soft nontender Dorsiflexion, plantarflexion, and extensor hallucis longus positive sustained bilaterally No signs or symptoms of DVT; no calf pain; pneumatic cuffs intact bilateral lower extremities Optifoam dressings remain intact over the lumbar spine and right iliac crest Neurovascularly intact bilaterally lower extremities - Labs CBC & Chem 7: 03/08/21 06:57 03/07/21 06:24 Assessment and Plan (1) Spinal stenosis, lumbar Current Visit: Yes Status: Acute Code(s): M48.061 - SPINAL STENOSIS, LUMBAR REGION WITHOUT NEUROGENIC SARAI SNOMED Code(s): 47117201 (2) Status post lumbar spinal fusion Current Visit: Yes Status: Acute Code(s): Z98.1 - ARTHRODESIS STATUS SNOMED Code(s): 22565814929099 (3) Coffee ground emesis Current Visit: Yes Status: Acute Code(s): K92.0 - HEMATEMESIS SNOMED Code(s): 71829849 Plan: The clinical findings are discussed with the patient. We will continue with physical therapy today. We will plan possible discharge to home tomorrow if doing well.
--- NOTE | 2021-03-09 14:51 | P.PN ---
Progress Note - Text Progress Note Date: 03/09/21 - Chief Complaint Lumbar surgeryss Consultation: This is a very pleasant 65-year-old patient who follows with Dr. Dr. Archibald. Chronic stable medical conditions include diabetes, GERD, hypertension, prior [place], obstructive sleep apnea, hypothyroid, restless leg syndrome. Patient's had chronic lower back pain not responding to conservative treatment. Was having all. Radiculopathy in both the legs. Symptoms have not responding to conservative treatment. Patient recurrent stenosis L4-L5 DJD, but extremity weakness. Patient underwent decompression discectomy. On March 06. Yesterday patient had a spinal leak. Was put on bedrest. Was having headaches. Below the night patient started having coffee-ground emesis. Some abdominal discomfort. No prior history of ulcers. GI was also was consulted. This afternoon patient sitting up on a chair. Did eat some. at the bedside. Slight abdominal discomfort. As far some flatus. Does feel dizzy and a bit tired. Post surgery patient has some weakness in the right leg. Has ch ronic numbness in the left leg from prior surgery Today: EGD: Antral erosive gastritis. 5 mm superficial ulcer in the proximal body of the stomach, but no active bleeding. Sitting up in a chair. No abdominal pain. Did walk to the bathroom. Pain control. Review of systems: Was done for constitutional, cardiovascular, GI, pulmonary. relevant finding as above Active Medications Hydrocodone Bitart/Acetaminophen (Hydrocodone/Apap 5-325mg 1 Each Tab) 1 each PO Q4HR PRN PRN Reason: Pain Stop: 04/05/21 11:35 Hydrocodone Bitart/Acetaminophen (Hydrocodone/Apap 5-325mg 1 Each Tab) 2 each PO Q6HR PRN PRN Reason: Pain Stop: 04/05/21 11:35 Hydrocodone Bitart/Acetaminophen (Hydrocodone/Apap 10-325mg 1 Each Tab) 1 each PO Q6HR PRN PRN Reason: Pain Stop: 04/05/21 11:37 Last Admin: 03/09/21 06:11 Dose: 1 each Documented by: Albuterol Sulfate (Albuterol Nebulized 2.5 Mg/3 Ml) 2.5 mg INHALATION Q6H PRN PRN Reason: Shortness Of Breath Stop: 04/05/21 11:37 Last Admin: 03/08/21 01:10 Dose: 2.5 mg Documented by: Atorvastatin Calcium (Atorvastatin 10 Mg Tab) 10 mg PO MOWEFR [facility] Stop: 04/05/21 13:01 Last Admin: 03/08/21 16:37 Dose: 10 mg Documented by: Benzocaine/Menthol (Benzocaine/Menthol Lozeng 1 Each Lozenge) 1 each MUCOUS MEM Q4HR PRN PRN Reason: Sore Throat Stop: 04/05/21 11:35 Cholecalciferol (Cholecalciferol 25 Mcg (1000 Iu) Tablet) 75 mcg PO DAILY [facility] Stop: 04/06/21 09:01 Last Admin: 03/09/21 08:44 Dose: 75 mcg Documented by: Cyclobenzaprine HCl (Cyclobenzaprine 10 Mg Tab) 10 mg PO TID PRN PRN Reason: Muscle Spasm Stop: 04/05/21 11:35 Cyclobenzaprine HCl (Cyclobenzaprine 10 Mg Tab) 10 mg PO TID [facility] Stop: 04/05/21 16:01 Last Admin: 03/09/21 08:43 Dose: 10 mg Documented by: Hydromorphone HCl (Hydromorphone 0.5 Mg/0.5 Ml Syringe) 0.5 mg IVP Q4HR PRN PRN Reason: Pain Stop: 04/05/21 11:35 Hydromorphone HCl (Hydromorphone 1 Mg/Ml 1 Ml Syringe) 1 mg IVP Q4HR PRN PRN Reason: Pain Stop: 04/05/21 11:35 Last Admin: 03/08/21 19:55 Dose: 1 mg Documented by: Lactated Ringer's (Lactated Ringers) 1,000 mls @ 20 mls/hr IV .Q24H [facility] Stop: 04/04/21 17:31 Last Admin: 03/08/21 17:32 Dose: Not Given Documented by: Sodium Chloride (Saline 0.9%) 1,000 mls @ 75 mls/hr IV .[id number] [facility] Stop: 04/05/21 11:46 Last Admin: 03/09/21 00:02 Dose: 75 mls/hr Documented by: Cefazolin Sodium 2 gm/ Sodium (Chloride) 50 mls @ 100 mls/hr IVPB Q8HR [facility] Last Admin: 03/09/21 09:01 Dose: 100 mls/hr Documented by: Levothyroxine Sodium (Levothyroxine 137 Mcg Tab) 137 mcg PO QA@0630 [facility] Last Admin: 03/09/21 06:12 Dose: 137 mcg Documented by: Loratadine (Loratadine 10 Mg Tab) 10 mg PO DAILY [facility] Stop: 04/06/21 09:01 Last Admin: 03/09/21 08:43 Dose: 10 mg Documented by: Magnesium Hydroxide (Magnesium Hydroxide 2,400 Mg/10 Ml Cup) 2,400 mg PO BID PRN PRN Reason: Constipation Last Admin: 03/09/21 09:21 Dose: 2,400 mg Documented by: Metoprolol Succinate (Metoprolol Succinate (Er) 25 Mg Tab.Er.24h) 25 mg PO QAM [facility] Stop: 04/06/21 09:01 Last Admin: 03/09/21 08:43 Dose: 25 mg Documented by: Multivitamins (Multivitamins, Thera 1 Each Tab) 1 each PO DAILY [facility] Stop: 04/06/21 09:01 Last Admin: 03/09/21 08:43 Dose: 1 each Documented by: Ondansetron HCl (Ondansetron 4 Mg/2 Ml Vial) 4 mg IVP Q8HR PRN PRN Reason: Nausea And Vomiting Stop: 04/05/21 11:35 Last Admin: 03/08/21 12:18 Dose: 4 mg Documented by: Pantoprazole Sodium (Pantoprazole 40 Mg/10 Ml Vial) 40 mg IVP BID [facility] Last Admin: 03/09/21 08:43 Dose: 40 mg Documented by: Pramipexole Dihydrochloride (Pramipexole 0.5 Mg Tab) 0.5 mg PO [facility] Stop: 04/05/21 21:01 Last Admin: 03/08/21 21:23 Dose: 0.5 mg Documented by: Senna/Docusate Sodium (Sennosides-Docusate Sodium 1 Each Tab) 1 each PO DAILY [facility] Stop: 04/06/21 09:01 Last Admin: 03/09/21 08:44 Dose: 1 each Documented by: Sumatriptan Succinate (Sumatriptan Succinate 50 Mg Tab) 100 mg PO DAILY PRN PRN Reason: migraines Last Admin: 03/08/21 09:12 Dose: 100 mg Documented by: Triamterene/Hydrochlorothiazide (Triamterene-Hctz 37.5-25mg 1 Each Cap) 1 each PO QAM [facility] Stop: 04/06/21 09:01 Last Admin: 03/09/21 08:44 Dose: 1 each Documented by: Past medical history to include: Diabetes, GERD, hypertension, previous [place], prostatitis, obstructive sleep apnea, hypothyroid, restless leg syndrome, migraines Social history: Does not smoke or drink alcohol. . Physical examination: VITAL SIGNS: 98.7, 91, 18, 131/73, 94% on 2 L GENERAL:. BMI 36.9, sitting up in a chair, awake. EYES: Pupils equal. Conjunctiva normal.. NECK: JVD not raised; masses not palpable. HEART: First and second heart sounds are normal; no edema. LUNGS: Respiratory rate normal; clear to auscultation. ABDOMEN: Soft, nontender, liver spleen not palpable, no masses palpable. PSYCH: Alert and oriented x3; mood and affect normal. MUSCULAR skeletal: Dressing over the operative site. INVESTIGATIONS, reviewed in the clinical context: WBC 7.2 hemoglobin point 0.2 platelets 204 Potassium 3.6 creatinine 0.6 Assessment and plan: -Acute GI bleed from antral erosive gastritis and a 5 mm superficial ulcer in the proximal body of the stomach. Continue PPI. Patient told to avoid NSAIDs -Diabetes mellitus type 2 Metformin. Follow Accu-Cheks -Hyperlipidemia Continue with Crestor -Restless leg syndrome Continue with Mirapex -Hypothyroid Continue with Synthroid -Obesity BMI 36.9 Weight loss measures and follow-up with PCP -Recurrent stenosis L4-L5, DJD, lower extremity neuropathy and weakness, followed by decompression and discectomy fusion Diet has been resumed. Care was discussed with the patient. Activity as tolerated. Thank you Dr. Moncada
[2021-03-09] MEDS: HYDROcodone/APAP 5-325MG 1 EACH TAB PO PRN (15:04)
[2021-03-09] MEDS: LACTATED RINGERS 1,000 ML IV SCH (17:32)
[2021-03-09] MEDS: PRAMIPEXOLE 0.5 MG TAB PO SCH (22:44)
[2021-03-10] MEDS: HYDROmorphone 0.5 MG/0.5 ML SYRINGE IVP PRN ×2 (00:28→17:51)
[2021-03-10] MEDS: MAGNESIUM HYDROXIDE 2,400 MG/10 ML CUP PO PRN ×3 (01:50→21:05)
[2021-03-10] MEDS: HYDROcodone/APAP 10-325MG 1 EACH TAB PO PRN ×2 (05:47→21:40)
[2021-03-10] MEDS: LEVOTHYROXINE 137 MCG TAB PO SCH (05:47)
[2021-03-10 06:52] LABS: Basophils % (A) 1 %; Eosinophils # (A) 0.3 k/uL (0-0.7); Eosinophils % (A) 6 %; HCT 34.3 % (34.0-46.0); HGB 12.4 gm/dL (11.4-16.0); Lymphocytes % (A) 20 %; MCH 34.7 pg (25.0-35.0); MCV 96.5 fL (80.0-100.0); Mean Platelet Volume 7.6; Monocytes # (A) 0.3 k/uL (0-1.0); Monocytes % (A) 7 %; Neutrophils # (A) 3.1 k/uL (1.3-7.7); Neutrophils % (A) 65 %; Platelet Count 243 k/uL (150-450); RBC 3.56 m/uL (3.80-5.40); RDW 13.2 % (11.5-15.5); WBC 4.8 k/uL (3.8-10.6)
[2021-03-10] MEDS: METOPROLOL SUCCINATE (ER) 25 MG TAB.ER.24H PO SCH (07:56)
[2021-03-10] MEDS: CHOLECALCIFEROL 25 MCG (1000 IU) TABLET PO SCH (07:56)
[2021-03-10] MEDS: TRIAMTERENE-HCTZ 37.5-25MG 1 EACH CAP PO SCH (07:56)
[2021-03-10] MEDS: MULTIVITAMINS, THERA 1 EACH TAB PO SCH (07:56)
[2021-03-10] MEDS: SENNOSIDES-DOCUSATE SODIUM 1 EACH TAB PO SCH (07:57)
[2021-03-10] MEDS: CYCLOBENZAPRINE 10 MG TAB PO SCH ×3 (07:57→21:41)
[2021-03-10] MEDS: LORATADINE 10 MG TAB PO SCH (07:57)
[2021-03-10] MEDS: PANTOPRAZOLE 40 MG/10 ML VIAL IVP SCH ×2 (09:05→21:05)
--- NOTE | 2021-03-10 09:15 | PN ---
PROGRESS NOTE DATE OF SERVICE: 03/10/2021 INTERVAL HISTORY: Patient is a 65-year-old pleasant white female admitted to the hospital with neck surgery and while in the hospital developed upper GI bleed. She underwent an upper endoscopy yesterday that showed a small 5 mm antral ulcer presently on Protonix 40 mg twice daily. She is feeling well, complaining of some constipation and some nausea but no abdominal pain. No further episodes of nausea or vomiting. PHYSICAL EXAMINATION: GENERAL: She appears comfortable. VITAL SIGNS: Stable. Blood pressure is 109/59, pulse rate 97, temperature 98.5. HEENT: Examination unremarkable. Conjunctivae are pink. Sclerae anicteric. Oral cavity no lesions. NECK: No JVD or lymph node enlargement. CHEST: Clear to auscultation. HEART: Regular rate and rhythm. ABDOMEN: Soft, it was nontender, nondistended. Bowel sounds are positive. EXTREMITIES: No pedal edema. NEURO: She is alert and oriented x3. No focal deficits. LABS: From today WBC 4.8, hemoglobin 12.4, platelets normal. Basic metabolic panel is not available. IMPRESSION: 1. Acute upper gastrointestinal bleed. The patient had several episodes of coffee- ground emesis. EGD yesterday showed a small 5 mm antral ulcer and antral gastritis. On Protonix 40 mg twice daily, doing well. 2. History of diabetes mellitus. 3. History of hyperlipidemia. 4. History of hypothyroidism. RECOMMENDATIONS: 1. Continue with Protonix 40 mg twice daily. 2. Avoid NSAIDs. 3. Advance diet as tolerated. 4. I will follow with you. Thank you for this consultation. MMODL / IJN: [id number] /
[2021-03-10] MEDS: HYDROcodone/APAP 5-325MG 1 EACH TAB PO PRN ×2 (11:10→15:17)
--- NOTE | 2021-03-10 11:15 | P.DS ---
Providers Date of admission: 03/08/21 16:33 Expected date of discharge: 03/10/21 Attending physician: Franchesca Moncada Consults: 03/08/21 00:01 Consult Physician Urgent Consulting Provider: Roshan Thompson Consult Reason/Comments: coffee ground emesis Do you want consulting provider notified?: Yes 03/08/21 06:02 Consult Physician Urgent Consulting Provider: Raisa Martinez Consult Reason/Comments: positive gastric occult blood Do you want consulting provider notified?: Yes, Notify in am Primary care physician: Huang Archibald - Discharge Diagnosis(es) (1) Spinal stenosis, lumbar Current Visit: Yes Status: Acute (2) Status post lumbar spinal fusion Current Visit: Yes Status: Acute (3) Coffee ground emesis Current Visit: Yes Status: Acute Hospital Course: This is a 65-year-old female who was admitted to [facility] on 03/06/2021 for minimally invasive posterior lumbar decompression and fusion with transforaminal interbody fusion of L4-5 for chronic lumbar spinal stenosis and degenerative disc disease. The patient had a few episodes of hematemesis postoperatively and was evaluated by gastroenterology. She did have an EGD which showed some small erosions which were biopsied and cauterized. Patient is doing well postoperatively she has not yet had a bowel movement but is passing gas and has active bowel sounds. She has complained of mild low back pain with some right buttock pain. She has no neurologic deficits. She is and living with her walker with minimal assistance. The patient would like to go home today. Patient is discharged to home today in good condition. Please see med rec for accurate list of home medications. Plan - Discharge Summary Discharge Rx Participant: No New Discharge Prescriptions: New Cyclobenzaprine [Flexeril] 10 mg PO TID PRN #60 tab PRN Reason: Muscle Spasm HYDROcodone/APAP 5-325MG [[place] 5] 1 - 2 each PO Q6HR PRN #56 tab PRN Reason: Pain No Action Triamterene-Hctz 37.5-25Mg [Dyazide 37.5-25 Capsule] 1 cap PO QAM Levothyroxine Sodium [Synthroid] 137 mcg PO QAM Pramipexole Di-HCl [Mirapex] 0.5 mg PO HS Pantoprazole Sodium [Protonix] 40 mg PO QAM Cholecalciferol [Vitamin D3] 3,000 unit PO DAILY Hydrocodone/Acetaminophen [Hydrocodone/Acetaminophen 10-325] 1 tab PO Q6HR PRN PRN Reason: Pain Metoprolol Succinate (ER) [Toprol Xl] 25 mg PO QAM Albuterol Sulfate [Proair Respiclick] 1 puff PO Q6H PRN PRN Reason: Shortness Of Breath metFORMIN HCL [Glucophage] 500 mg PO DAILY Cyclobenzaprine [Flexeril] 10 mg PO TID Cetirizine HCl [Zyrtec] 10 mg PO DAILY Rosuvastatin Calcium [Crestor] 5 mg PO MOWEFR Multivitamin [Multivitamins Adult Gummies] 1 each PO DAILY Rizatriptan Odt [Maxalt Quirk Sander] 10 mg PO DAILY PRN PRN Reason: migraines Discharge Medication List Levothyroxine Sodium [Synthroid] 137 mcg PO QAM 02/23/14 [History] Pantoprazole Sodium [Protonix] 40 mg PO QAM 02/23/14 [History] Pramipexole Di-HCl [Mirapex] 0.5 mg PO HS 02/23/14 [History] Triamterene-Hctz 37.5-25Mg [Dyazide 37.5-25 Capsule] 1 cap PO QAM 02/23/14 [History] Cholecalciferol [Vitamin D3] 3,000 unit PO DAILY 12/10/15 [History] Hydrocodone/Acetaminophen [Hydrocodone/Acetaminophen 10-325] 1 tab PO Q6HR PRN 01/23/16 [History] Metoprolol Succinate (ER) [Toprol Xl] 25 mg PO QAM 01/23/16 [History] Albuterol Sulfate [Proair Respiclick] 1 puff PO Q6H PRN 02/14/21 [History] Multivitamin [Multivitamins Adult Gummies] 1 each PO DAILY 02/14/21 [History] Rizatriptan Odt [Maxalt Quirk Sander] 10 mg PO DAILY PRN 02/14/21 [History] Rosuvastatin Calcium [Crestor] 5 mg PO MOWEFR 02/14/21 [History] Cetirizine HCl [Zyrtec] 10 mg PO DAILY 03/04/21 [History] Cyclobenzaprine [Flexeril] 10 mg PO TID 03/04/21 [History] metFORMIN HCL [Glucophage] 500 mg PO DAILY 03/04/21 [History] Cyclobenzaprine [Flexeril] 10 mg PO TID PRN #60 tab 03/08/21 [Rx] HYDROcodone/APAP 5-325MG [[place] 5] 1 - 2 each PO Q6HR PRN #56 tab 03/08/21 [Rx] Follow up Appointment(s)/Referral(s): Gurinder Castañeda, MARIYA [PHYSIC[employer]] - 2 Weeks (Patient may follow-up with Gurinder Castañeda PA-C or Dr. Mike Moncada at [facility] in 2-3 weeks following discharge. ) Activity/Diet/Wound Care/Special Instructions: 1. Patient may shower with Optifoam dressing intact. 2. Patient may remove Optifoam dressing in 4 days and shower without a dressing at that time. 3. Patient should refrain from driving until at least after their first follow- up appointment in the office. 4. Patient should avoid excessive bending, twisting, lifting; avoid overhead lifting; no lifting greater than 10 pounds 5. Take medications as prescribed 6. Do not soak in tub Discharge Disposition: HOME SELF-CARE
[2021-03-10] MEDS: SODIUM CHLORIDE 0.9% 1,000 ML IV SCH ×2 (11:33→22:44)
--- NOTE | 2021-03-10 13:20 | P.PN ---
Progress Note - Text Progress Note Date: 03/10/21 - Chief Complaint Lumbar surgeryss Consultation: This is a very pleasant 65-year-old patient who follows with Dr. Dr. Archibald. Chronic stable medical conditions include diabetes, GERD, hypertension, prior [place], obstructive sleep apnea, hypothyroid, restless leg syndrome. Patient's had chronic lower back pain not responding to conservative treatment. Was having all. Radiculopathy in both the legs. Symptoms have not responding to conservative treatment. Patient recurrent stenosis L4-L5 DJD, but extremity weakness. Patient underwent decompression discectomy. On March 06. Yesterday patient had a spinal leak. Was put on bedrest. Was having headaches. Below the night patient started having coffee-ground emesis. Some abdominal discomfort. No prior history of ulcers. GI was also was consulted. This afternoon patient sitting up on a chair. Did eat some. at the bedside. Slight abdominal discomfort. As far some flatus. Does feel dizzy and a bit tired. Post surgery patient has some weakness in the right leg. Has ch ronic numbness in the left leg from prior surgery. EGD: Antral erosive gastritis. 5 mm superficial ulcer in the proximal body of the stomach, but no active bleeding. Today: Feeling much better. Oral intake fair. No abdominal pain. Walking better. Review of systems: Was done for constitutional, cardiovascular, GI, pulmonary. relevant finding as above Active Medications Hydrocodone Bitart/Acetaminophen (Hydrocodone/Apap 5-325mg 1 Each Tab) 1 each PO Q4HR PRN PRN Reason: Pain Stop: 04/05/21 11:35 Hydrocodone Bitart/Acetaminophen (Hydrocodone/Apap 5-325mg 1 Each Tab) 2 each PO Q6HR PRN PRN Reason: Pain Stop: 04/05/21 11:35 Last Admin: 03/10/21 11:10 Dose: 2 each Documented by: Hydrocodone Bitart/Acetaminophen (Hydrocodone/Apap 10-325mg 1 Each Tab) 1 each PO Q6HR PRN PRN Reason: Pain Stop: 04/05/21 11:37 Last Admin: 03/10/21 05:47 Dose: 1 each Documented by: Albuterol Sulfate (Albuterol Nebulized 2.5 Mg/3 Ml) 2.5 mg INHALATION Q6H PRN PRN Reason: Shortness Of Breath Stop: 04/05/21 11:37 Last Admin: 03/08/21 01:10 Dose: 2.5 mg Documented by: Atorvastatin Calcium (Atorvastatin 10 Mg Tab) 10 mg PO MOWEFR [facility] Stop: 04/05/21 13:01 Last Admin: 03/08/21 16:37 Dose: 10 mg Documented by: Benzocaine/Menthol (Benzocaine/Menthol Lozeng 1 Each Lozenge) 1 each MUCOUS MEM Q4HR PRN PRN Reason: Sore Throat Stop: 04/05/21 11:35 Cholecalciferol (Cholecalciferol 25 Mcg (1000 Iu) Tablet) 75 mcg PO DAILY [facility] Stop: 04/06/21 09:01 Last Admin: 03/10/21 07:56 Dose: 75 mcg Documented by: Cyclobenzaprine HCl (Cyclobenzaprine 10 Mg Tab) 10 mg PO TID PRN PRN Reason: Muscle Spasm Stop: 04/05/21 11:35 Cyclobenzaprine HCl (Cyclobenzaprine 10 Mg Tab) 10 mg PO TID [facility] Stop: 04/05/21 16:01 Last Admin: 03/10/21 07:57 Dose: 10 mg Documented by: Hydromorphone HCl (Hydromorphone 0.5 Mg/0.5 Ml Syringe) 0.5 mg IVP Q4HR PRN PRN Reason: Pain Stop: 04/05/21 11:35 Last Admin: 03/10/21 00:28 Dose: 0.5 mg Documented by: Hydromorphone HCl (Hydromorphone 1 Mg/Ml 1 Ml Syringe) 1 mg IVP Q4HR PRN PRN Reason: Pain Stop: 04/05/21 11:35 Last Admin: 03/08/21 19:55 Dose: 1 mg Documented by: Lactated Ringer's (Lactated Ringers) 1,000 mls @ 20 mls/hr IV .Q24H [facility] Stop: 04/04/21 17:31 Last Admin: 03/09/21 17:32 Dose: Not Given Documented by: Sodium Chloride (Saline 0.9%) 1,000 mls @ 75 mls/hr IV .[id number] [facility] Stop: 04/05/21 11:46 Last Admin: 03/10/21 11:33 Dose: Not Given Documented by: Cefazolin Sodium 2 gm/ Sodium (Chloride) 50 mls @ 100 mls/hr IVPB Q8HR [facility] Last Admin: 03/10/21 07:57 Dose: 100 mls/hr Documented by: Levothyroxine Sodium (Levothyroxine 137 Mcg Tab) 137 mcg PO QAM@0630 [facility] Last Admin: 03/10/21 05:47 Dose: 137 mcg Documented by: Loratadine (Loratadine 10 Mg Tab) 10 mg PO DAILY [facility] Stop: 04/06/21 09:01 Last Admin: 03/10/21 07:57 Dose: 10 mg Documented by: Magnesium Hydroxide (Magnesium Hydroxide 2,400 Mg/10 Ml Cup) 2,400 mg PO BID PRN PRN Reason: Constipation Last Admin: 03/10/21 07:55 Dose: 2,400 mg Documented by: Metoprolol Succinate (Metoprolol Succinate (Er) 25 Mg Tab.Er.24h) 25 mg PO QAM [facility] Stop: 04/06/21 09:01 Last Admin: 03/10/21 07:56 Dose: 25 mg Documented by: Multivitamins (Multivitamins, Thera 1 Each Tab) 1 each PO DAILY [facility] Stop: 04/06/21 09:01 Last Admin: 03/10/21 07:56 Dose: 1 each Documented by: Ondansetron HCl (Ondansetron 4 Mg/2 Ml Vial) 4 mg IVP Q8HR PRN PRN Reason: Nausea And Vomiting Stop: 04/05/21 11:35 Last Admin: 03/08/21 12:18 Dose: 4 mg Documented by: Pantoprazole Sodium (Pantoprazole 40 Mg/10 Ml Vial) 40 mg IVP BID [facility] Last Admin: 03/10/21 09:05 Dose: 40 mg Documented by: Pramipexole Dihydrochloride (Pramipexole 0.5 Mg Tab) 0.5 mg PO HS [facility] Stop: 04/05/21 21:01 Last Admin: 03/09/21 22:44 Dose: 0.5 mg Documented by: Senna/Docusate Sodium (Sennosides-Docusate Sodium 1 Each Tab) 1 each PO DAILY [facility] Stop: 04/06/21 09:01 Last Admin: 03/10/21 07:57 Dose: 1 each Documented by: Sumatriptan Succinate (Sumatriptan Succinate 50 Mg Tab) 100 mg PO DAILY PRN PRN Reason: migraines Last Admin: 03/08/21 09:12 Dose: 100 mg Documented by: Triamterene/Hydrochlorothiazide (Triamterene-Hctz 37.5-25mg 1 Each Cap) 1 each PO QAM ARACELI Stop: 04/06/21 09:01 Last Admin: 03/10/21 07:56 Dose: 1 each Documented by: Past medical history to include: Diabetes, GERD, hypertension, previous [place], prostatitis, obstructive sleep apnea, hypothyroid, restless leg syndrome, migraines Social history: Does not smoke or drink alcohol. . Physical examination: VITAL SIGNS: 98.3, 86, 18, 131/68, 93% room air GENERAL:. Laying in bed, comfortable EYES: Pupils equal. Conjunctiva normal.. NECK: JVD not raised; masses not palpable. HEART: First and second heart sounds are normal; no edema. LUNGS: Respiratory rate normal; clear to auscultation. ABDOMEN: Soft, nontender, liver spleen not palpable, no masses palpable. PSYCH: Alert and oriented x3; mood and affect normal. INVESTIGATIONS, reviewed in the clinical context: 620: WBC 4.8 hemoglobin 12.4 WBC 7.2 hemoglobin point 0.2 platelets 204 Potassium 3.6 creatinine 0.6 Assessment and plan: -Acute GI bleed from antral erosive gastritis and a 5 mm superficial ulcer in the proximal body of the stomach. Continue PPI. Patient told to avoid NSAIDs -Diabetes mellitus type 2 Metformin. Follow Accu-Cheks -Hyperlipidemia Continue with Crestor -Restless leg syndrome Continue with Mirapex -Hypothyroid Continue with Synthroid -Obesity BMI 36.9 Weight loss measures and follow-up with PCP -Recurrent stenosis L4-L5, DJD, lower extremity neuropathy and weakness, followed by decompression and discectomy fusion Doing much better. Care was discussed with the patient. Continue current medications Thank you Dr. Moncada
[2021-03-10] MEDS: LACTATED RINGERS 1,000 ML IV SCH (17:42)
[2021-03-10] MEDS: PRAMIPEXOLE 0.5 MG TAB PO SCH (21:05)
[2021-03-11] MEDS: LEVOTHYROXINE 137 MCG TAB PO SCH (06:02)
[2021-03-11] MEDS: CHOLECALCIFEROL 25 MCG (1000 IU) TABLET PO SCH (08:11)
[2021-03-11] MEDS: TRIAMTERENE-HCTZ 37.5-25MG 1 EACH CAP PO SCH (08:11)
[2021-03-11] MEDS: LORATADINE 10 MG TAB PO SCH (08:11)
[2021-03-11] MEDS: CYCLOBENZAPRINE 10 MG TAB PO SCH (08:11)
[2021-03-11] MEDS: MULTIVITAMINS, THERA 1 EACH TAB PO SCH (08:11)
[2021-03-11] MEDS: SENNOSIDES-DOCUSATE SODIUM 1 EACH TAB PO SCH (08:11)
[2021-03-11] MEDS: PANTOPRAZOLE 40 MG/10 ML VIAL IVP SCH (08:11)
[2021-03-11] MEDS: METOPROLOL SUCCINATE (ER) 25 MG TAB.ER.24H PO SCH (08:11)
[2021-03-11] MEDS: HYDROcodone/APAP 10-325MG 1 EACH TAB PO PRN (08:16)
[2021-03-11] MEDS: HYDROcodone/APAP 5-325MG 1 EACH TAB PO PRN (11:41)
[2021-03-11 12:07] VITALS: BP 126/69; PULSE 81; RESP 19; TEMP 97.6
[2021-03-11] MEDS: SODIUM CHLORIDE 0.9% 1,000 ML IV SCH (12:52)
--- NOTE | 2021-03-11 15:44 | P.PN ---
Progress Note - Text Progress Note Date: 03/11/21 - Chief Complaint Lumbar surgeryss Consultation: This is a very pleasant 65-year-old patient who follows with Dr. Dr. Archibald. Chronic stable medical conditions include diabetes, GERD, hypertension, prior PR, obstructive sleep apnea, hypothyroid, restless leg syndrome. Patient's had chronic lower back pain not responding to conservative treatment. Was having all. Radiculopathy in both the legs. Symptoms have not responding to conservative treatment. Patient recurrent stenosis L4-L5 DJD, but extremity weakness. Patient underwent decompression discectomy. On March 06. Yesterday patient had a spinal leak. Was put on bedrest. Was having headaches. Below the night patient started having coffee-ground emesis. Some abdominal discomfort. No prior history of ulcers. GI was also was consulted. This afternoon patient sitting up on a chair. Did eat some. at the bedside. Slight abdominal discomfort. As far some flatus. Does feel dizzy and a bit tired. Post surgery patient has some weakness in the right leg. Has ch ronic numbness in the left leg from prior surgery. EGD: Antral erosive gastritis. 5 mm superficial ulcer in the proximal body of the stomach, but no active bleeding. Continue PPI. Today: Doing much better. Walk in the hallway. Pain control. Care was discussed with the patient. Review of systems: Was done for constitutional, cardiovascular, GI, pulmonary. relevant finding as above Current medications reviewed in today's electronic records Past medical history to include: Diabetes, GERD, hypertension, previous PR, prostatitis, obstructive sleep apnea, hypothyroid, restless leg syndrome, migraines Social history: Does not smoke or drink alcohol. . Physical examination: VITAL SIGNS: 97.6, 81, 19, 126.69, 93% on room air GENERAL:. Sitting up in a chair comfortable EYES: Pupils equal. Conjunctiva normal.. NECK: JVD not raised; masses not palpable. HEART: First and second heart sounds are normal; no edema. LUNGS: Respiratory rate normal; clear to auscultation. ABDOMEN: Soft, nontender, liver spleen not palpable, no masses palpable. PSYCH: Alert and oriented x3; mood and affect normal. INVESTIGATIONS, reviewed in the clinical context: March 10: WBC 4.8 hemoglobin 12.4 WBC 7.2 hemoglobin point 0.2 platelets 204 Potassium 3.6 creatinine 0.6 Assessment and plan: -Acute GI bleed from antral erosive gastritis and a 5 mm superficial ulcer in the proximal body of the stomach. Continue PPI. Patient told to avoid NSAIDs -Diabetes mellitus type 2 Metformin. Follow Accu-Cheks -Hyperlipidemia Continue with Crestor -Restless leg syndrome Continue with Mirapex -Hypothyroid Continue with Synthroid -Obesity BMI 36.9 Weight loss measures and follow-up with PCP -Recurrent stenosis L4-L5, DJD, lower extremity neuropathy and weakness, followed by decompression and discectomy fusion Stable. Improved. Follow-up with PCP. Discussed with patient. Thank you Dr. Moncada
== END 2021-03-11 13:32 | disposition home or self-care (01) | DRG 982 ==
LOC: OR 07:17 → 5NMEDONC 11:27 → OR 03-07 13:21 → OBSVTOIN 03-08 16:33
PROVIDERS: ADMIT Orthopaedic Surgery Orthopaedic Surgery of the Spine; ATTEND Orthopaedic Surgery Orthopaedic Surgery of the Spine
PROC: 0SG0071 Fusion of Lumbar Vertebral Joint with Autologous Tissue Substitute, Posterior Approach, Posterior Column, Open Approach (ICD-10-PCS; 2021-03-06)
PROC: 0ST20ZZ Resection of Lumbar Vertebral Disc, Open Approach (ICD-10-PCS; 2021-03-06)
PROC: 01NB0ZZ Release Lumbar Nerve, Open Approach (ICD-10-PCS; 2021-03-06)
PROC: 0SG00AJ Fusion of Lumbar Vertebral Joint with Interbody Fusion Device, Posterior Approach, Anterior Column, Open Approach (ICD-10-PCS; principal; 2021-03-06 08:30)
PROC: 0DB78ZX Excision of Stomach, Pylorus, Via Natural or Artificial Opening Endoscopic, Diagnostic (ICD-10-PCS; 2021-03-09)
DX: K25.4 Chronic or unspecified gastric ulcer with hemorrhage (principal); G97.41 Accidental puncture or laceration of dura during a procedure; M48.061 Spinal stenosis, lumbar region without neurogenic claudication; K29.61 Other gastritis with bleeding; M51.16 Intervertebral disc disorders with radiculopathy, lumbar region; M47.26 Other spondylosis with radiculopathy, lumbar region; Y83.8 Other surgical procedures as the cause of abnormal reaction of the patient, or of later complication, without mention of misadventure at the time of the procedure; G43.909 Migraine, unspecified, not intractable, without status migrainosus; E11.41 Type 2 diabetes mellitus with diabetic mononeuropathy; Z20.822 Contact with and (suspected) exposure to COVID-19; I25.2 Old myocardial infarction; I10 Essential (primary) hypertension; G89.29 Other chronic pain; E78.5 Hyperlipidemia, unspecified; G25.81 Restless legs syndrome; E03.9 Hypothyroidism, unspecified; E66.9 Obesity, unspecified; Z68.36 Body mass index [BMI] 36.0-36.9, adult; G47.33 Obstructive sleep apnea (adult) (pediatric); Z79.890 Hormone replacement therapy; Z79.84 Long term (current) use of oral hypoglycemic drugs; K21.9 Gastro-esophageal reflux disease without esophagitis; Z90.710 Acquired absence of both cervix and uterus; M41.86 Other forms of scoliosis, lumbar region; M19.90 Unspecified osteoarthritis, unspecified site; Z79.82 Long term (current) use of aspirin; Z90.49 Acquired absence of other specified parts of digestive tract; Z88.0 Allergy status to penicillin; Z88.2 Allergy status to sulfonamides; Z79.899 Other long term (current) drug therapy; Z83.3 Family history of diabetes mellitus; Z82.49 Family history of ischemic heart disease and other diseases of the circulatory system
CPT/HCPCS: 43239; 72100; 80048; 82271; 85025; 86850; 86900; 86901; 87635; 88305; 94640; 94760

== ENCOUNTER → 2021-08-21 | Outpatient (CLI) | payer MEDICARE ==
--- NOTE | 2021-08-21 16:05 | US ---
EXAMINATION TYPE: US bladder DATE OF EXAM: 08/21/2021 COMPARISON: NONE CLINICAL HISTORY: R35.0 Frequency of micturition. EXAM MEASUREMENTS: Post Void Residual Volume: 14.4 mL Color Doppler performed to assess ureteral jets. Bilateral Jets seen: Yes Normal Post Void Residual (less than 50ml): Yes IMPRESSION: 1. Normal urinary bladder.
== END | disposition home or self-care (01) ==
LOC: RADUSWWP 12:14
PROVIDERS: ATTEND Family Medicine
DX: R35.0 Frequency of micturition (principal)
CPT/HCPCS: 76857